=== PATIENT | female | born 1985 | race Caucasian/White ===

== ENCOUNTER 2017-02-27 06:34 | Emergency (ER) | payer MEDICAID ==
[~2017-02-27] VITALS: Ht 175.3 cm; Wt 91.0 kg
[2017-02-27 06:35] VITALS: Ht 175.3 cm; Wt 91.0 kg
[2017-02-27] MEDS ORDERED: HYDROCODONE/APAP (5/325) TAB PO ONE (07:00)
[2017-02-27] MEDS ORDERED: PEN500 PO (07:05)
[2017-02-27] MEDS ORDERED: HYDR-906 PO (07:05)
[2017-02-27] MEDS ORDERED: IBUP-1542 PO (07:09)
--- NOTE | 2017-02-27 07:16 | ERD ---
ER Documentation Chief Complaint Date/Time DATE: 02/27/17 TIME: 07:15 Chief Complaint toothache x yesterday HPI This a 32-year-old female presents the emergency department today complaining of left-sided toothache for the past 2 days. States it is making her feel "sick ". States she has a broken tooth. States she took aspirin for the pain. Denies any fevers or chills. ROS All systems reviewed and are negative except as per history of present illness. Medications Home Meds Active Scripts Ondansetron Hcl* (Zofran*) 4 Mg Tablet, 4 MG PO Q6H for NAUSEA AND/OR VOMITING, #30 TAB Prov:URIEL OVIEDO PA-C 02/27/17 Ibuprofen* (Motrin*) 600 Mg Tab, 600 MG PO Q6, #30 TAB Prov:URIEL OVIEDOC 02/27/17 Penicillin V Potassium* (Penicillin V K*) 500 Mg Tab, 500 MG PO QID for 7 Days, TAB Prov:URIEL OVIEDO PA-C 02/27/17 Hydrocodone/Acetaminophen ([place] 5-325 Tablet) 1 Each Tablet, 1 TAB PO Q6H Y for PAIN, #10 TAB Prov:URIEL OVIEDO PA-C 02/27/17 Physical Exam Vitals Vital Signs Date Time Temp Pulse Resp B/P Pulse Ox O2 Delivery O2 Flow Rate FiO2 02/27/17 06:35 98.0 115 18 142/95 100 Physical Exam Const: No acute distress Head: Atraumatic Eyes: Normal Conjunctiva ENT: Normal External Ears, Nose and Mouth. Left incisor tooth fractured and evidence of dental caries. Neck: Full range of motion..~ No meningismus. Resp: Clear to auscultation bilaterally Cardio: Regular rate and rhythm, no murmurs Skin: No petechiae or rashes Neur: Awake and alert Psych: Normal Mood and Affect Results 24 hrs Current Medications Medications (Trade) Dose Ordered Sig/Emiliano Route PRN Reason Start Time Stop Time Status Last Admin Dose Admin Acetaminophen/ Hydrocodone Bitart ([place] (5/325)) 1 tab ONCE ONCE PO 02/27/17 07:00 02/27/17 07:01 DC 02/27/17 07:02 Procedures/MDM Is a 32-year-old female who presents the emergency department today complaining of a toothache for the past 2 days. On physical exam patient has a tooth fracture in her left incisor and molar. Do not see evidence of abscess however given patient a prescription for Penicillin VK. Patient was given [place] here in the emergency department. Patient symptoms at this time is consistent with tooth fracture and dental pain she was instructed to follow-up with her primary care doctor or dentist. I gave her referral information for [facility] dentist. Patient began vomiting prior to discharge and was therefore given Zofran here in the emergency department. Patient begin a prescription for short course of [place] and Motrin and Zofran for home. At this time the patient is stable for discharge and outpatient management. Patient should follow up with their PCP in the next 1-2 days. They may return to the emergency department sooner for any persistent or worsening of symptoms. Patient understood and agreed with the plan. Departure Diagnosis: Primary Impression: Pain, dental Condition: Fair Patient Instructions: Dental Pain Referrals: [facility] CL[facility]ICS YOU HAVE RECEIVED A MEDICAL SCREENING EXAM AND THE RESULTS INDICATE THAT YOU DO NOT HAVE A CONDITION THAT REQUIRES URGENT TREATMENT IN THE EMERGENCY DEPARTMENT. FURTHER EVALUATION AND TREATMENT OF YOUR CONDITION CAN WAIT UNTIL YOU ARE SEEN IN YOUR DOCTORS OFFICE WITHIN THE NEXT 1-2 DAYS. IT IS YOUR RESPONSIBILITY TO MAKE AN APPOINTMENT FOR FOLOW-UP CARE. IF YOU HAVE A PRIMARY DOCTOR --you should call your primary doctor and schedule an appointment IF YOU DO NOT HAVE A PRIMARY DOCTOR YOU CAN CALL OUR PHYSICIAN REFERRAL HOTLINE AT IF YOU CAN NOT AFFORD TO SEE A PHYSICIAN YOU CAN CHOSE FROM THE FOLLOWING [facility] CLINICS [facility] [address] [facility] [address] [facility]. [facility] [address] [facility] [address] [facility] [address] [facility] [facility]. [address] [facility] ([facility] walk in clinic) Additional Instructions: Call your primary care doctor TOMORROW for an appointment during the next 1-2 days.See the doctor sooner or return here if your condition worsens before your appointment time. Take [place] for severe pain otherwise take Naprosyn or Tylenol or Motrin Take antibiotics as prescribed Make an appointment with [facility] Dentist URIEL OVIEDO PA-C Feb 27, 2017 07:16
[2017-02-27] MEDS ORDERED: ONDA4TAB8 PO (07:20)
[2017-02-27] MEDS ORDERED: ONDANSETRON (ODT) 4 MG TAB ODT STA (07:39)
[2017-02-27 08:09] VITALS: BP 126/75; PULSE 75; RESP 19; TEMP 98.3
== END 2017-02-27 08:09 | disposition home or self-care (01) ==
LOC: E/R 06:34
DX: K08.89 Other specified disorders of teeth and supporting structures (principal)
CPT/HCPCS: Z7610 ×2; 99284

== ENCOUNTER 2019-02-01 11:45 | Emergency (ER) | payer MEDICAID ==
[~2019-02-01] VITALS: Ht 175.3 cm; Wt 95.5 kg
[~2019-02-01 11:45] MED LIST: HYDR-4011 PO; IBUP-1542 PO; ONDA4TAB8 PO; PENI500T PO
[2019-02-01 11:47] VITALS: BP 144/76; PULSE 103; RESP 18; Ht 175.3 cm; Wt 95.5 kg
[2019-02-01] MEDS ORDERED: ONDANSETRON (ODT) 4 MG TAB ODT STA (12:14)
[2019-02-01] MEDS ORDERED: HYDROCODONE/APAP (5/325) TAB PO ONE (12:30)
[2019-02-01] MEDS ORDERED: NAPR-985 PO (13:56)
[2019-02-01] MEDS ORDERED: HYDR-4011 PO (13:56)
[2019-02-01] MEDS ORDERED: ONDA4TAB14 PO (13:56)
--- NOTE | 2019-02-01 15:27 | ERD ---
ER Documentation Chief Complaint Chief Complaint pt bib self with c/o right sided rib pain s/p falling off ladder HPI 33 yr old female complaining of right rib pain after falling off of a ladder a few days ago. Patient has not taken medications for symptoms. She does have some pain with deep breaths. Pain is located to the right rib space. Denies any head injury or loss of consciousness. Denies other medical problems. NKDA. Surgical history denies. Social history smokes a pack of cigarettes a day. Drug use denies ROS All systems reviewed and are negative except as per history of present illness. Medications Home Meds Active Scripts Ondansetron (Ondansetron Odt) 4 Mg Tab.rapdis, 4 MG PO Q6H PRN for NAUSEA AND/OR VOMITING, #10 TAB Prov:ANNETTE DOSHI PA-C 02/01/19 Naproxen* (Naprosyn*) 500 Mg Tablet, 500 MG PO BID PRN for PAIN AND/OR INFLAMMATION, #30 TAB Prov:ANNETTE DOSHI PA-C 02/01/19 Hydrocodone/Acetaminophen ([place] 5-325 Tablet) 1 Each Tablet, 1 TAB PO Q6H PRN for PAIN, #7 TAB Prov:ANNETTE DOSHI PA-C 02/01/19 Ondansetron Hcl* (Zofran*) 4 Mg Tablet, 4 MG PO Q6H for NAUSEA AND/OR VOMITING, #30 TAB Prov:URIEL OVIEDO PA-C 02/27/17 Ibuprofen* (Motrin*) 600 Mg Tab, 600 MG PO Q6, #30 TAB Prov:URIEL OVIEDO PA-C 02/27/17 Penicillin V Potassium* (Penicillin V K*) 500 Mg Tab, 500 MG PO QID for 7 Days, TAB Prov:URIEL OVIEDO PA-C 02/27/17 Hydrocodone/Acetaminophen ([place] 5-325 Tablet) 1 Each Tablet, 1 TAB PO Q6H PRN for PAIN, #10 TAB Prov:URIEL OVIEDO PA-C 02/27/17 Allergies Allergies: Coded Allergies: No Known Allergy (Unverified , 02/01/19) PMhx/Soc Medical and Surgical Hx: pt denies Medical Hx, pt denies Surgical Hx Hx Alcohol Use: No Hx Tobacco Use: No FmHx Family History: No diabetes, No coronary disease, No other Physical Exam Vitals Vital Signs Date Temp Pulse Resp B/P (MAP) Pulse Ox O2 O2 Flow FiO2 Time Delivery Rate 02/01/19 99.0 103 18 144/76 100 11:47 (98) Physical Exam GENERAL: The patient is well-appearing, well-nourished, in no acute distress HEENT: Atraumatic. Conjunctivae are pink. Pupils equal, round, and reactive to light. There is no scleral icterus. Tympanic membranes clear bilaterally. Oropharynx clear. NECK: C-spine is soft and supple. There is no meningismus. There is no cervical lymphadenopathy. CHEST: Clear to auscultation bilaterally. There are no rales, wheezes or rhonchi. Tender to palpation over the right rib space. No crepitus. HEART: Regular rate and rhythm. No murmurs, clicks, rubs or gallops. SKIN: There is no apparent rash or petechiae. The skin is warm and dry. Results 24 hrs Current Medications Medications Dose Sig/Emiliano Start Time Status Last (Trade) Ordered Route PRN Stop Time Admin Dose Reason Admin 1 tab ONCE ONCE 02/01/19 DC 02/01/19 Acetaminophen PO 12:30 02/01/19 12:21 / 12:31 Hydrocodone Bitart ([place] (5/325)) Ondansetron 4 mg ONCE STAT 02/01/19 DC 02/01/19 HCl (Zofran ODT 12:14 02/01/19 12:21 Odt) 12:15 Procedures/MDM DIAGNOSTIC IMAGING REPORT Patient: LUDMILA CARPIO : 1985 Age: 33 Sex: F MR #: [id number] DOS: 02/01/19 1214 Ordering MD: ANDREA DOSHI PA-C Location: [facility] Room/Bed: PROCEDURE: XR Chest CLINICAL INDICATION: fall , pain TECHNIQUE: Frontal view of the chest COMPARISON: CR CHEST 09/28/2018 FINDINGS: The cardiomediastinal silhouette is within normal limits. No focal pulmonary consolidations. There is no evidence of significant pleural effusion or pneumothorax. No acute osseous abnormalities. There is minimal cortical irregularity and thin lucency in the posterior right ninth rib, also seen on prior exam. See dedicated rib radiographs for further details. IMPRESSION: No radiographic evidence of acute cardiopulmonary disease. See dedicated rib radiographs for further details. DIAGNOSTIC IMAGING REPORT Patient: LUDMILA CARPIO : 1985 Age: 33 Sex: F MR #: [id number] DOS: 02/01/19 1214 Ordering MD: ANDREA DOSHI PA-C [facility] Room/Bed: PROCEDURE: XR right ribs CLINICAL INDICATION: rib pain after fall . TECHNIQUE: multiple frontal and oblique views of the right ribs were obtained. The images were reviewed on a PACS workstation. COMPARISON: CHEST 02/01/2019; [facility] CHEST 09/28/2018 FINDINGS: The cardiomediastinal silhouette is within normal limits. No focal pulmonary consolidations. There is no evidence of significant pleural effusion or pneumothorax. No acute osseous abnormality. There is minimal cortical irregularity and thin lucency in the posterior right ninth rib, in the region of linear lucency on prior chest radiograph exam. IMPRESSION: No radiographic evidence of acute displaced rib fracture. There is minimal cortical irregularity and thin lucency in the posterior right ninth rib, in the region of a linear lucency on prior chest radiograph exam. Findings suggestive of minimally-displaced healing rib fracture. MDM: 33 yr old female complaining of right rib pain. Concerning findings for possible fracture. Patient will be discharged with pain medication. I have low suspicion for pulmonary contusion or pneumothorax. I have low suspicion for other pulmonary emergencies. I have low suspicion for pneumonia development. Patient's oxygen saturation is stable patient's exam is nontoxic-appearing. Patient is discharged with strict ER precautions and told to follow-up with primary care within 1 to 2 days for close evaluation. All questions answered at discharge Departure Diagnosis: Primary Impression: Rib fracture Condition: Stable Patient Instructions: Fracture, Rib Referrals: COMMUNITY CLINICS YOU HAVE RECEIVED A MEDICAL SCREENING EXAM AND THE RESULTS INDICATE THAT YOU DO NOT HAVE A CONDITION THAT REQUIRES URGENT TREATMENT IN THE EMERGENCY DEPARTMENT. FURTHER EVALUATION AND TREATMENT OF YOUR CONDITION CAN WAIT UNTIL YOU ARE SEEN IN YOUR DOCTORS OFFICE WITHIN THE NEXT 1-2 DAYS. IT IS YOUR RESPONSIBILITY TO MAKE AN APPOINTMENT FOR FOLOW-UP CARE. IF YOU HAVE A PRIMARY DOCTOR --you should call your primary doctor and schedule an appointment IF YOU DO NOT HAVE A PRIMARY DOCTOR YOU CAN CALL OUR PHYSICIAN REFERRAL HOTLINE AT IF YOU CAN NOT AFFORD TO SEE A PHYSICIAN YOU CAN CHOSE FROM THE FOLLOWING [facility] [address] [facility] [address] [facility] [address] [facility] [address] [facility] [address] [facility]. [facility] [address] Additional Instructions: FOLLOW UP WITH YOUR PRIMARY CARE PHYSICIAN TOMORROW.Return to this facility if you are not improving as expected. ANNETTE DOSHI PA-C Feb 01, 2019 15:27
== END 2019-02-01 14:10 | disposition home or self-care (01) ==
LOC: FTE 11:45
DX: S22.31XA Fracture of one rib, right side, initial encounter for closed fracture (principal); F17.210 Nicotine dependence, cigarettes, uncomplicated; W11.XXXA Fall on and from ladder, initial encounter; Y92.9 Unspecified place or not applicable
CPT/HCPCS: 71045; 71100; Z7502; Z7610